=== PATIENT | male | born 1970 | race Caucasian/White ===

== ENCOUNTER 2016-04-26 10:43 | Emergency (ER) | payer OTHER ==
[2016-04-26 11:00] VITALS: BP 158/92
--- NOTE | 2016-04-26 11:04 | ERNOTE ---
Lower Extremity HPI - General Lower Extremities Pain: knee: left Time Seen by Provider: 04/26/16 10:52 Source: patient Exam Limitations: no limitations - Immun/Allergies/Home Medications Immunizations: IMMUNIZATION HX Immunizations Up to Date Yes History of Influenza Vaccine No Hx Pneumococcal Vaccination No Allergies/Adverse Reactions: Allergies Allergy/AdvReac Type Severity Reaction Status Date / Time lisinopril AdvReac Mild COUGH Verified 04/26/16 11:00 Home Medications: HOME MEDICATIONS Albuterol Sulfate [Proair Hfa] 2 puff IH Q4H PRN 05/31/15 [Last Taken 01/31/16] Atorvastatin Calcium [Lipitor] 20 mg PO DAILY 05/31/15 [Last Taken 01/31/16] Chlorthalidone [Hygroton] 12.5 mg PO DAILY 05/31/15 [Last Taken 01/31/16] Fluticasone/Salmeterol [Advair Hfa 115-21 Mcg Inhaler] 2 puff IH BID 05/31/15 [ Last Taken 01/31/16] Naproxen Sodium [Anaprox DS] 550 mg PO Q12H PRN 05/31/15 [Last Taken 01/31/16] Tiotropium Dozier [Spiriva] 1 cap IH DAILY 05/31/15 [Last Taken 01/31/16] Potassium Chloride [K-Dur] 20 meq PO BID 12/02/15 [Last Taken 01/31/16] Pantoprazole Sodium [Protonix] 40 mg PO DAILY 01/14/16 [Last Taken 01/31/16] traMADol HCL [Ultram] 50 - 100 mg PO Q8H PRN 01/14/16 [Last Taken 01/31/16] - History of Present Illness Narrative: Patient had surgery on his left Knee in January 2016, has been doing PT three times a week for about two months, last yesterday, after that he went multiple places, denies doing a lot of walking though, denies any injuries. In the evening he noticed that the left knee was sore and swollen. He still has tramadol for pain and took one at 09:00 with minimal relieve Date (Duration): 04/25/16 Occurred: yesterday Method of Injury: Denies: fell, twisted, direct blow Modifying Factors - (Improves): Reports: rest Modifying Factors - (Worsens): Reports: movement Other Injuries: Reports: none Subsequent Symptoms: Denies: sensory loss Review of Systems - Review of Systems Constitutional: Absent: recent illness, fever ENT: Absent: nose congestion Respiratory: Present: cough - baseline, COPD. Absent: shortness of breath Cardiology: Absent: chest pain Gastrointestinal/Abdominal: Absent: See HPI, nausea Genitourinary: Present: no symptoms reported Musculoskeletal: Present: See HPI Neurological: Absent: weakness, numbness - Patient's Past Medical History Patient History - Medical: Anxiety, Arthritis, GERD, Headache Patient History - Cardiac/Respiratory: Asthma, COPD, CVA/Stroke, Hypertension, Hyperlipidemia Patient History - Cancer: No Hx of Cancer Patient History - Surgical Procedures: Appendectomy, Other Patient History - Other: None - Family History Father Family History - Medical: , No pertinent hx Family History - Cardiac/Respiratory: No pertinent hx - Social History Living Situations: home Abuse History: No History of abuse Psych History: Hx of Anxiety Smoking Status: Current every day smoker Alcohol Use: none Drug Use: other - Immunizations Immunizations Up to Date: Yes Hx Pneumococcal Vaccination: No History of Influenza Vaccine: No Physical Exam - Physical Exam General Appearance: Present: wd/wn, no apparent distress Respiratory: Present: no respiratory distress, no accessory muscle use, lungs clear, decreased breath sounds Cardiovascular/Chest: Present: regular rate, rhythm Extremity Exam: Present: normal except - - left knee, pain on ROM and decreased ROM, mild effusion, tender on palpation suprapatellar Neurological Exam: Present: alert, oriented, normal mood/affect, no motor/ sensory deficits Skin Exam: Present: normal color, warm/dry ED Progress - Vital Signs Patient's Vital Signs:: I have reviewed the patient's vital signs. Vital Signs: Vital Signs 04/26/16 10:54 Temperature 37.2 C Pulse Rate 85 Respiratory 18 Rate Blood Pressure 158/92 O2 Sat by Pulse 97 Oximetry - X-Ray X-Ray #1 X-Ray: knee - effusion, no bony injury Interpretation: Interp. by me - Progress/Reassessment Chief Complaint: Lower Extremity Pain/ Injury Progress Note-Subjective: 04/26/16 11:[address] Jerry, will see patient next week in clinic 04/26/16 11:45 discussed with patient Departure Clinical Impression: Knee effusion, left - Departure Disposition: Home self-care Condition: Good Instructions: Knee Effusion, [id number] Additional Instructions: follow up with Dr Jerry next week Referrals: Alvarado Holliday MD [Primary Care Provider] - Riley Jerry MD [Staff Physician] -
== END 2016-04-26 11:50 | disposition home or self-care (01) ==
LOC: ER 10:43
DX: M25.462 Effusion, left knee (principal); F17.210 Nicotine dependence, cigarettes, uncomplicated; J45.909 Unspecified asthma, uncomplicated; K21.9 Gastro-esophageal reflux disease without esophagitis; E78.5 Hyperlipidemia, unspecified; I10 Essential (primary) hypertension; J44.9 Chronic obstructive pulmonary disease, unspecified

== ENCOUNTER 2017-01-16 09:56 | Day surgery (SDC) | payer OTHER ==
[~2017-01-16 09:56] MED LIST: RINGER'S SOLUTION,LACTATED 1,000 ML IV PRN; ceFAZolin SODIUM 1 GM VIAL IV PRN
[2017-01-16] MEDS ORDERED: RINGER'S SOLUTION,LACTATED 1,000 ML IV ONE ×3 (10:15→13:38)
[2017-01-16 14:40] VITALS: BP 165/92
--- NOTE | 2017-01-16 17:34 | OR ---
Anesthesia Procedure Note - Anesthesia Procedure Note Narrative: Vital Signs - Last Taken Temp 36.4 C L 01/16/17 14:01 Pulse 68 01/16/17 14:38 Resp 16 01/16/17 14:38 BP 165/92 01/16/17 14:38 Pulse Ox 97 01/16/17 14:38 O2 Oxygen Delivery Method Room Air 01/16/17 17:30 ANESTHESIA PROCEDURE NOTE Date of procedure: 01/16/2017. Time of procedure: 1040. Performed by: Derik Parker CRNA Side Framer: Nae Ball RN . Preprocedure diagnosis: Right shoulder pain. Right labral tear. Need for postoperative analgesia. Post procedure diagnosis: Same. Procedure: Right interscalene nerve block Indications: Postoperative analgesia. Findings: Patient brought to operating room #2 and placed in semi-Cary's position. Patient was sedated. The right side of patient's neck was prepped with ChloraPrep. Ultrasound was used to identify brachial plexus in the interscalene groove. A 22-gauge 2 inch Stimuplex regional block needle was advanced under ultrasound guidance and with nerve stimulator to confirm needle placement. Muscle twitch was elicited at 0.9 mA. Energy level was decreased gradually with muscle twitch maintained until 0.45 mA. Thin muscle twitch disappeared. A total of 40 mL of 0.5% Marcaine with epinephrine 1 2000 was injected around the nerves and brachial plexus. Adequate spread of local anesthetic was noted. Regional block needle was removed intact. EBL: Minimal. Fluids: N/A. Specimen: N/A. Post procedure condition: The patient tolerated the procedure well. No complications were noted. Thank you for this consultation Derik Parker CRNA
--- NOTE | 2017-01-19 07:47 | OR ---
Operative Report - Dictated Report Narrative: Date: 01/19/2017 Physician: Riley Jerry M.D. Colors Custodian: Efrain Balderas PA-C Preoperative diagnosis: Right Shoulder labral tear, shoulder instability Postoperative diagnosis: Right Shoulder labral tear, shoulder instability Procedure: Right shoulder arthroscopy with anterior capsular shift and labral repair Anesthesia: General plus regional Complications: None Estimated blood loss: Minimal Specimens: None Retained implants: [employer] 2.3 mm bio Raptor anchors 3 Drains: None Indications: Mr. Holman Is a 46 year-old gentleman who has been followed in my clinic with complaints of shoulder pain consistent anterior instability and suspected labral tear. Physical exam and diagnostic imaging were consistent with his complaints and concern for labral tear. Conservative measures have failed including, but not limited to, passage of time, activity modification, medications, physical therapy/home exercise program, or injections. The risks, benefits, and alternatives were discussed in clinic. The risks being , bleeding, infection, blood clots, nerve, tendon, ligament, blood vessel injury, persistent pain, arthrosis, stiffness, need for prolonged therapy, need for additional procedures, and persistent symptoms. Consent was obtained in the clinic. Procedure: After marking the correct extremity in the preoperative holding area, a timeout was performed in the operating room. IV antibiotics consisting of Ancef were administered prior to the procedure. A general followed by regional anesthetic was induced by the nurse ore mixer per my request. This was in the supine position, then the patient was transitioned to a beachchair position with all bony prominences well-padded, head in neutral, the nonoperative arm well supported, and the legs padded with SCDs in place. The operative shoulder was then prepped and draped in a standard sterile fashion. Preoperatively the shoulder had full passive range of motion, and grade 2 anterior instability. After marking out the bony landmarks, saline was infused into the joint through a posterior lateral portal site. A umm incision was made, and the blunt trocar and cannula was introduced into the shoulder joint. An accessory portal was placed in the rotator cuff interval using a spinal needle for guidance. The middle glenohumeral ligament was elevated off the anterior glenoid. Subscapularis tendon was intact. The glenoid showed no significant arthrosis or Bankart. The humeral head articular surface showed a 1 cm area over the anterior humeral head with early degenerative change. The anterior labrum was torn and scarred into the anterior glenoid. The superior labrum was intact. The pouch was unremarkable. The posterior labrum was frayed but intact. The supraspinatus tendon was intact. The infraspinatus tendon was intact. Utilizing accessory anterior portal, the scarred and anterior labrum was elevated and mobilized onto the anterior aspect of the glenoid. Secondary to his anterior instability as well as his torn and elevated middle glenohumeral ligament, and anterior capsular shift was performed. 3 anchors were placed at approximately the 2:00 3:00 4:00 positions. A portion of the anterior capsule, middle glenohumeral ligament, and labrum were all elevated and mobilized to the anterior glenoid and secured from inferior to superior and a shift. These were tied sequentially and resulted in a significant improvement in the overall anterior instability and added a significant anterior bumper. This was probed and noted to be stable. There is no other pathology identified. The portal sites were closed with interrupted nylon. Dressings consisting of Xeroform, 4 x 4, ABD, and tape were applied. All sponge, needle, blade, and instrument counts were correct prior to closing the wounds. The patient was awoken and transferred to the postanesthesia care unit in stable condition.
== END 2017-01-16 09:57 | disposition home or self-care (01) ==
LOC: AMB 09:56
PROVIDERS: ATTEND Orthopaedic Surgery
PROC: 3E0T3BZ Introduction of Anesthetic Agent into Peripheral Nerves and Plexi, Percutaneous Approach (ICD-10-PCS; 2017-01-16)
PROC: 0MM14ZZ Reattachment of Right Shoulder Bursa and Ligament, Percutaneous Endoscopic Approach (ICD-10-PCS; principal; 2017-01-16 12:00)
DX: S43.491A Other sprain of right shoulder joint, initial encounter (principal); M25.311 Other instability, right shoulder; I10 Essential (primary) hypertension; J44.9 Chronic obstructive pulmonary disease, unspecified; J45.40 Moderate persistent asthma, uncomplicated; E78.5 Hyperlipidemia, unspecified; K21.9 Gastro-esophageal reflux disease without esophagitis; F17.200 Nicotine dependence, unspecified, uncomplicated; Z68.30 Body mass index [BMI] 30.0-30.9, adult